=== PATIENT | female | born 1980 | race Caucasian/White ===

== ENCOUNTER 2017-09-20 12:44 | Emergency (ER) | payer BC ==
[2017-09-20 13:07] VITALS: BP 113/76
--- NOTE | 2017-09-20 13:39 | UC ---
Skin Complaint HPI - HPI Summary HPI Summary: Patient developed cold sore on her lower lip on 09/16/17. She applied topical benzocaine for symptom relief. Afterwards she developed some lip swelling and pain so she switched to [facility] and went to [facility] urgent care in [place], [place]. She was given Valtrex which she has completed. Yesterday she was seen by a provider in [place], [place] and was treated for allergic reaction with Benadryl. later yesterday afternoon she saw her PCP and was given Bactroban ointment and a Medrol Dosepak. Patient woke up this morning with worsening lip swelling and pain. She came in here for reevaluation but notes that since this morning the swelling has significantly improved. Pt is asking about steroid injection into her lip. Denies any fever or airway compromise. - History of Current Complaint Chief Complaint: UCSkin Time Seen by Provider: 09/20/17 13:21 Stated Complaint: SWOLLEN LIPS Hx Obtained From: Patient Hx Last Menstrual Period: 09/12/17 Onset/Duration: Gradual Onset, Lasting Days, Still Present Timing: Constant Onset Severity: Moderate Current Severity: Moderate Pain Intensity: 7 Pain Scale Used: 0-10 Numeric Location: Other - lips Character: Swelling, Pain, Redness Aggravating Factor(s): Touch Alleviating Factor(s): Antihistamines Associated Signs & Symptoms: Positive: Drainage, Tenderness - Allergy/Home Medications Allergies/Adverse Reactions: Allergies Allergy/AdvReac Type Severity Reaction Status Date / Time amoxicillin Allergy Rash Verified 09/20/17 12:53 benzocaine Allergy Rash Verified 09/20/17 12:53 Home Medications: Home Medications Control 1 tab PO DAILY 09/20/17 [History Confirmed 09/20/17] Ibuprofen TAB* [Advil TAB*] 600 mg PO Q6HR PRN 09/20/17 [History Confirmed 09/20] LORazepam [Ativan 0.5 MG TAB] 1 tab PO TID PRN 09/20/17 [History Confirmed 09/20] Levothyroxine TAB* [Synthroid 137 MCG TAB*] 1 tab PO DAILY 09/20/17 [History Confirmed 09/20/17] Mupirocin 2% OINT* [Bactroban 2 % Oint*] 1 applic TOPICAL DAILY PRN 09/20/17 [ History Confirmed 09/20/17] Polyethylene Glycol 3350 [Miralax] 1 packet PO DAILY 09/20/17 [History Confirmed 09/20/17] Valacyclovir HCl [Valtrex] 1 tab PO DAILY 09/20/17 [History Confirmed 09/20/17] diphenhydrAMINE HCl [Diphenhydramine HCl] 1 tab PO BID PRN 09/20/17 [History Confirmed 09/20/17] methylPREDNISolone [Medrol Dosepak 4 MG*] 1 tab PO SEE INSTRUCTIONS 09/20/17 [ History Confirmed 09/20/17] Review of Systems Constitutional: Negative Skin: Other - lip swelling, cracking, crusting, oozing Respiratory: Negative Cardiovascular: Negative Gastrointestinal: Negative All Other Systems Reviewed And Are Negative: Yes PMH/Surg Hx/FS Hx/Imm Hx Other Neurological History: CHIARI MALFORMATION Other Cancer History: THYROID CANCER - Surgical History Surgical History: Yes Surgery Procedure, Year, and Place: Thyroidectomy; Tonsilectomy - Family History Known Family History: Negative: Hypertension - Social History Alcohol Use: Weekly Substance Use Type: None Smoking Status (MU): Never Smoked Tobacco Physical Exam Triage Information Reviewed: Yes Appearance: Well-Appearing, Well-Nourished, Pain Distress - MODERATE Vital Signs: Initial Vital Signs Temp 99.1 F 09/20/17 12:59 Pulse 76 09/20/17 12:59 Resp 18 09/20/17 12:59 BP 113/76 09/20/17 12:59 Pulse Ox 97 09/20/17 12:59 Vital Signs Reviewed: Yes Eyes: Positive: Conjunctiva Clear ENT: Positive: Hearing grossly normal Neck: Positive: Supple Respiratory: Positive: No respiratory distress, No accessory muscle use Cardiovascular: Positive: Pulses Normal Abdomen Description: Positive: Soft Musculoskeletal: Positive: ROM Intact Neurological: Positive: Alert Psychological: Positive: Age Appropriate Behavior Skin: Positive: Other - Upper and lower lip edema-lower lip worse than upper lip. There is some oozing and crusting. There is some cracking of the skin. Very tender. Course/Dx - Course Course Of Treatment: PATIENT'S LIP SWELLING IS MUCH IMPROVED SINCE THIS MORNING. THERE IS SOME CONCERN FOR DEVELOPING IMPETIGO - SUCH I RECOMMENDED SHE CONTINUE THE BACTROBAN TOPICALLY PRESCRIBED. SHE HAS ALSO BEEN RECOMMENDED TO USE COOL COMPRESSES AND TO APPLY VASELINE LIBERALLY FOR LUBRICATION. ANTIHISTAMINES DAILY. IF SHE DOES NOT CONTINUE TO IMPROVE SHE WILL FOLLOW-UP WITH HER PRIMARY CARE DOCTOR OR WITH A PLATER BARREL. - Diagnoses Provider Diagnoses: ANGIOEDEMA Discharge - Discharge Plan Condition: Stable Disposition: HOME Patient Education Materials: Angioedema (ED) Referrals: Ulises CASANOVA,Alberta Alberts [Primary Care Provider] - If Needed Additional Instructions: Symptoms seem much improved since this morning. Would continue to use the Bactroban 3 times per day as prescribed. In between applications apply Vaseline liberally to the lips to keep the skin lubricated. Continue the Medrol Dosepak as prescribed if you can tolerate it. Take Zyrtec 10 mg in the morning and 50 mg of Benadryl at night. Apply cool compresses as needed for comfort. Follow-up with your primary care physician if you are not continuing to improve as expected. If you are interested in discussing the indications for intralesional injections follow-up with dermatology. DERMATOLOGY IN [place] Dr. Elvira Sarmientollister Address: [address] [place] [address] [address] [place] [address] DR. DAWN [facility] [address] [place] [address] [address] ALBERTO JOE [facility], [facility] [address] [place] [address]; [address] [place] [address] [place] [address] Any Mcclellan DERMATOLOGY IN [place] DR. BERKLEY MEDLEY [phone] GO TO THE ED WITHOUT FAIL IF YOU DEVELOP WORSENING SWELLING OF THE TONGUE OR LIPS, ANY RESPIRATORY INVOLVEMENT, CHEST PAIN, NAUSEA OR ANY OTHER CONCERNING SYMPTOMS.
== END 2017-09-20 13:50 | disposition home or self-care (01) ==
LOC: UCEAST 12:44
DX: T78.3XXA Angioneurotic edema, initial encounter (principal); Z85.850 Personal history of malignant neoplasm of thyroid; Z88.4 Allergy status to anesthetic agent; Z88.1 Allergy status to other antibiotic agents
CPT/HCPCS: 99201; G0463